=== PATIENT | female | born 1990 | race Caucasian/White ===

== ENCOUNTER 2016-11-04 13:55 | Emergency (ER) | payer OTHER ==
[~2016-11-04] VITALS: Ht 152.4 cm; Wt 57.2 kg
[2016-11-04 13:55] VITALS: BP 118/58
[2016-11-04] MEDS ORDERED: HYDR-971 PO (14:33)
[2016-11-04] MEDS ORDERED: ONDA4TAB10 PO (14:33)
--- NOTE | 2016-11-04 14:33 | PHYS DOC ---
Past Medical History Past Medical History: No Pertinent History Past Surgical History: No Surgical History Alcohol Use: Rarely Drug Use: None Adult General Chief Complaint Chief Complaint: ABDOMINAL PAIN [facility] HPI Patient is a 25 year old female presenting to the emergency department for evaluation of lower abdominal pain that has been going on since her period started yesterday but became very intense approximately 1 hour prior to arrival while she was driving her vehicle. She said that it was so intense that she had to pull off the side of the road and called 911. 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 She denies any abdominal surgeries. She says that her pain is much improved now however there is still some residual pain but nothing like she was experiencing earlier. Pain is midline sharp and crampy and feels similar to prior. Cramps although this one was more intense. Review of Systems Review of Systems Constitutional: Denies fever or chills [] Cardiovascular: No additional information not addressed in HPI [] GI: + abdominal pain, nausea. No vomiting, bloody stools or diarrhea [] : Denies dysuria or hematuria [] Musculoskeletal: Denies back pain or joint pain [] Current Medications Current Medications Current Medications Medications (Trade) Dose Ordered Sig/[facility] Start Time Stop Time Status Last Admin Dose Admin Ketorolac Tromethamine (Toradol Im) 60 mg 1X ONCE 11/04/16 14:45 11/04/16 14:46 Ondansetron HCl (Zofran Odt) 4 mg 1X ONCE 11/04/16 14:45 11/04/16 14:46 Oxycodone/ Acetaminophen (Percocet 5/325) 2 tab 1X ONCE 11/04/16 14:45 11/04/16 14:46 Allergies Allergies Allergies Coded Allergies Type Severity Reaction Last Updated Verified No Known Drug Allergies 11/04/16 No Physical Exam Physical Exam Constitutional: Well developed, well nourished, no acute distress, non-toxic appearance. [] Cardiovascular:Heart rate regular rhythm, no murmur [] Lungs & Thorax: Bilateral breath sounds clear to auscultation [] Abdomen: Bowel sounds normal, soft, no tenderness, no masses, no pulsatile masses. [] Current Patient Data Vital Signs Vital Signs Date Time Temp Pulse Resp B/P (MAP) Pulse Ox O2 Delivery O2 Flow Rate FiO2 11/04/16 13:55 97.6 60 18 118/58 (78) 99 Room Air 97.6 Lab Values Laboratory Tests Test 11/04/16 13:15 POC Urine HCG, Qualitative Hcg negative (Negative) EKG EKG [] Radiology/Procedures Radiology/Procedures [] Course & Med Decision Making Course & Med Decision Making Patient with lower abdominal pain that is somewhat concerning for ovarian torsion given how intense it was however do not think that she is torsion currently. She also may have had a ruptured ovarian cyst. She has absolutely no abdominal tenderness on exam currently including no pain over McBurney's. I told her that I recommended getting a urinalysis and an ultrasound. Patient refused stating that she rather just have her symptoms treated and go home and follow with a [facility] [employer] [employer] as an outpatient. Patient verbalized understanding that this may happen again and she would need to come back to the emergency department for proper imaging. Patient aware and agreeable with plan for discharge and verbalized understanding of the need for short-term [facility] [employer] [employer] follow-up and strict ER return precautions discussed including worsening pain fevers vomiting or other general concerns. Dragon Disclaimer Dragon Disclaimer This electronic medical record was generated, in whole or in part, using a voice recognition dictation system. Departure Departure Impression: Primary Impression: Abdominal pain Disposition: 01 HOME, SELF-CARE Condition: GOOD Referrals: RITESH AGUERO MD Patient Instructions: Abdominal Pain (Nonspecific) Additional Instructions: TAKE 400MG OF IBUPROFEN EVERY 6 HOURS AND THE NORCO FOR BREAKTHROUGH PAIN. Scripts Ondansetron (ZOFRAN ODT) 4 Mg Tab.rapdis 4 MG PO BID Y for NAUSEA/VOMITING, #10 TAB Prov: CLAUDIA SEGOVIA DO 11/04/16 Hydrocodone/Apap 5-325 (NORCO 5-325 TABLET) 1 Each Tablet 1 TAB PO PRN Q6HRS Y for PAIN, #14 TAB 0 Refills Prov: CLAUDIA SEGOVIA DO 11/04/16 Problem Qualifiers Primary Impression: Abdominal pain Abdominal location: lower abdomen, unspecified Qualified Codes: R10.30 - Lower abdominal pain, unspecified CLAUDIA SEGOVIA DO November 04, 2016 14:33
[2016-11-04] MEDS ORDERED: oxyCODONE/APAP 5/325 1 TAB TABLET PO ONE (14:45)
[2016-11-04] MEDS ORDERED: ONDANSETRON ODT 4 MG TAB.RAPDIS. PO ONE (14:45)
[2016-11-04] MEDS ORDERED: KETOROLAC TROMETHAMINE 60 MG/2 ML INJ. IM ONE (14:45)
== END 2016-11-04 14:54 | disposition home or self-care (01) ==
LOC: ER 14:39
DX: R10.30 Lower abdominal pain, unspecified (principal)
CPT/HCPCS: 84703; 96372; 99283; J1885; Q0162; 81025